=== PATIENT | male | born 1980 | race Caucasian/White ===

== ENCOUNTER 2017-03-17 16:19 | Emergency (ER) | payer OTHER ==
[~2017-03-17] VITALS: Wt 143.0 kg
[2017-03-17] MEDS ORDERED: ONDANSETRON 4 MG INJ IV STA (16:45)
[2017-03-17] MEDS ORDERED: morphine 4 MG/ML VIAL IV STA (16:45)
[2017-03-17] MEDS ORDERED: KETOROLAC 30 MG INJ IV STA (16:45)
[2017-03-17] MEDS ORDERED: SOD CHLORIDE 0.9% 1,000 ML IV STA (16:45)
--- NOTE | 2017-03-17 17:36 | RADRPT ---
PROCEDURE: US Scrotum. CLINICAL INDICATION: Right scrotal pain. TECHNIQUE: Multiple sonographic images of the scrotal region were obtained utilizing a linear arra y transducer with grayscale and color-flow and pulsed Doppler imaging. The images were reviewed on a high-resolution PACS workstation. COMPARISON: No prior studies are available for comparison. FINDINGS: The right testis measures 5.3 x 2.2 x 3.6 cm. The left testis measures 5.0 x 2.1 x 3.2 cm. There is no intratesticular mass. There is a benign right epididymal cyst measuring 0.5 cm and a benign left epididymal cyst measuring 0.5 cm. The epididymi are otherwise normal. There is normal flow to both testes demonstrated with color Doppler and pulsed Doppler sonography. There is no hydrocele. There is a varicocele in the right inguinal region with dilated veins measuring up to 2.0 mm. There is no left varicocele. The scrotal wall is unremarkable. IMPRESSION: 1. Benign bilateral epididymal cysts. 2. Varicocele in the right inguinal region measuring up to 2 mm. 3. Otherwise unremarkable scrotal ultrasound. RPTAT: QQ .Elie Chow MD, MD Date Time Electronically viewed and signed by .Elie Chow MD, MD on 03/17/2017 17:36 .R/
--- NOTE | 2017-03-17 19:16 | ERD ---
ER Documentation Chief Complaint Chief Complaint r. flank pain HPI 36-year-old male presents with severe right flank pain for 2 days. Began yesterday as testicular pain on the right side. The testicular pain has subsided and he now has severe flank pain he does not have any anterior abdominal pain. Is also had nausea and vomited on the way to the hospital. Has any history of kidney stones. Denies fever and chills. ROS All systems reviewed and are negative except as per history of present illness. Medications Home Meds Active Scripts Ondansetron (Ondansetron Odt) 4 Mg Tab.rapdis, 4 MG PO Q6H Y for NAUSEA AND/OR VOMITING, #14 TAB Prov:HERB VELOZ DO 03/17/17 Naproxen* (Naproxen*) 500 Mg Tablet, 500 MG PO BID, #22 TAB Prov:HERB VELOZ DO 03/17/17 Hydrocodone/Acetaminophen ([place] 5-325 Tablet) 1 Each Tablet, 1 EACH PO Q6, #20 TAB Prov:HERB VELOZ 03/17/17 PMhx/Soc Medical and Surgical Hx: pt denies Surgical Hx Hx Miscellaneous Medical Probl: Yes (cholesterol) Hx Alcohol Use: No Hx Substance Use: No Hx Tobacco Use: No Physical Exam Vitals Vital Signs Date Time Temp Pulse Resp B/P Pulse Ox O2 Delivery O2 Flow Rate FiO2 03/17/17 16:23 98.9 111 20 172/81 98 Physical Exam Const: [] Moderate distress Head: Atraumatic Eyes: Normal Conjunctiva ENT: Normal External Ears, Nose and Mouth. Neck: Full range of motion..~ No meningismus. Resp: Clear to auscultation bilaterally Cardio: Regular rate and rhythm, no murmurs Abd: Soft, non tender, non distended. Normal bowel sounds Skin: No petechiae or rashes Back: No midline or flank tenderness, no apparent musculoskeletal tenderness, Ext: No cyanosis, or edema Neur: Awake and alert Psych: Normal Mood and Affect Result Diagram: 03/17/17 1704 03/17/17 1704 Results 24 hrs Laboratory Tests Test 03/17/17 17:04 03/17/17 17:47 White Blood Count 9.610^3/ul Red Blood Count 5.3110^6/ul Hemoglobin 13.9g/dl Hematocrit 44.0% Mean Corpuscular Volume 82.9fl Mean Corpuscular Hemoglobin 26.2pg Mean Corpuscular Hemoglobin Concent 31.6g/dl Red Cell Distribution Width 12.6% Platelet Count 21281^3/UL Mean Platelet Volume 10.7fl Neutrophils % 63.0% Lymphocytes % 25.2% Monocytes % 8.6% Eosinophils % 2.7% Basophils % 0.3% Nucleated Red Blood Cells % 0.0/100WBC Neutrophils # 6.010^3/ul Lymphocytes # 2.410^3/ul Monocytes # 0.810^3/ul Eosinophils # 0.310^3/ul Basophils # 0.010^3/ul Nucleated Red Blood Cells # 0.010^3/ul Sodium Level 147mmol/L Potassium Level 4.0mmol/L Chloride Level 106mmol/L Carbon Dioxide Level 25mmol/L Anion Gap 20 Blood Urea Nitrogen 14mg/dl Creatinine 0.74mg/dl Glucose Level 107mg/dl Calcium Level 9.7mg/dl Total Bilirubin 0.2mg/dl Direct Bilirubin 0.00mg/dl Indirect Bilirubin 0.2mg/dl Aspartate Amino Transf (AST/SGOT) 25IU/L Alanine Aminotransferase (ALT/SGPT) 55IU/L Alkaline Phosphatase 94IU/L Total Protein 7.4g/dl Albumin 4.6g/dl Globulin 2.80g/dl Albumin/Globulin Ratio 1.64 Lipase 111U/L Urine Color YELLOW Urine Clarity SLIGHTLY CLOUDY Urine pH 5.0 Urine Specific Essie 1.027 Urine Ketones TRACEmg/dL Urine Nitrite NEGATIVEmg/dL Urine Bilirubin NEGATIVEmg/dL Urine Urobilinogen 1+mg/dL Urine Leukocyte Esterase 1+La/ul Urine Microscopic RBC 79/HPF Urine Microscopic WBC 24/HPF Urine Squamous Epithelial Cells FEW/HPF Urine Calcium Oxalate Crystals FEW/HPF Urine Bacteria FEW/HPF Urine Mucus MANY/HPF Urine Hemoglobin 3+mg/dL Urine Glucose NEGATIVEmg/dL Urine Total Protein 1+mg/dl Current Medications Medications (Trade) Dose Ordered Sig/Jenna Route PRN Reason Start Time Stop Time Status Last Admin Dose Admin Sodium Chloride (NS) 1,000 ml @ 1,000 mls/hr Q1H STAT IV 03/17/17 16:45 03/17/17 17:44 DC 03/17/17 17:12 Morphine Sulfate (morphine) 8 mg ONCE STAT IV 03/17/17 16:45 03/17/17 16:48 DC 03/17/17 17:11 Ondansetron HCl (Zofran Inj) 4 mg ONCE STAT IV 03/17/17 16:45 03/17/17 16:48 DC 03/17/17 17:11 Ketorolac Tromethamine (Toradol) 30 mg ONCE STAT IV 03/17/17 16:45 03/17/17 16:48 DC 03/17/17 17:11 Procedures/MDM Ureteral stone with colic. Patient's nausea and pain or care to the emergency room after liter of fluid, 4 mg of morphine, 30 mg of Toradol and 1 mg of Zofran. Patient also has varicocele on his right side which likely explains his symptoms he was virtually asymptomatic. No signs of infection. Going to discharge him with [place], naproxen, Zofran. Primary care follow-up in 2-3 days and return precautions CT abdomen pelvis interpretation: 4 mm right ureteral stone with mild hydronephrosis, no kidney stones, no obstruction of bowel, no free air perforation, no fractures Scrotal ultrasound interpret patient: Right hydrocele and inguinal region, good blood flow to both testicles. Departure Diagnosis: Primary Impression: Ureteral calculus, right Additional Impressions: Colic, ureteral Vomiting Condition: Stable HERB VELOZ DO Mar 17, 2017 19:16
--- NOTE | 2017-03-17 19:44 | RADRPT ---
PROCEDURE: CT KUB (renal stone survey). CLINICAL INDICATION: Severe right flank pain TECHNIQUE: CT KUB (Renal Stone Survey) without contrast was performed on a multidetector high-reso lution CT scanner. No IV contrast was administered. Coronal and sagittal reformatted images were o btained from the axial source images. Images were reviewed on a high-resolution PACS workstation. Th e total exam CTDI equals 23.6 mGy and the total exam DLP equals 1467.66 mGy-cm. One or more of the following dose reduction techniques were used: - Automated exposure control. - Adjustment of the mA and/or kV according to patient size. - Use of iterative reconstruction technique. COMPARISON: No prior studies are available for comparison. FINDINGS: CT renal stone survey: The kidneys are symmetric in size, position, and morphology. No renal calculus is identified. There is mild right hydronephrosis, mild right proximal hydroureter, and mild right perirenal and proxima l periureteral fat stranding/edema associated with a distal right ureteral calculus measuring 4 mm a t the ureteral vesicle junction (series 3, image 172; series 602, image 72). No left ureteral calcul us is seen. The unenhanced, under distended urinary bladder is otherwise grossly unremarkable. CT abdomen/pelvis: Respiratory motion artifact limits evaluation of the partially imaged lower lungs. A small pneumatoc nishi is partially imaged in the right lower lobe. No pleural effusion or suspicious pulmonary nodule or mass is identified at the lung bases. The partially imaged heart appears normal in size. There is no evidence of pericardial effusion or thickening at the levels scanned. The liver dome is excluded from the images, limiting evaluation. The liver appears normal in size an d contour, where visualized. There is evidence of mild diffuse hepatic steatosis. There is no eviden ce of discrete solid hepatic mass or intrahepatic biliary ductal dilatation. The gallbladder is unre markable. There is no extrahepatic biliary ductal dilatation. The spleen is normal in size and atten uation. Small splenule is noted. The pancreas is mildly fatty replaced, but otherwise unremarkable. The bilateral adrenal glands are normal and symmetric in size, morphology, and attenuation. The visualized lower thoracic and abdominal aorta is normal in caliber. No lymphadenopathy is identi fied in the abdomen, pelvis, or retroperitoneum. The stomach is partially collapsed, but grossly unr emarkable. The small bowel, as visualized, is unremarkable. There is no evidence of bowel obstructio n. The appendix is not definitely identified. No pericecal inflammatory changes are noted. There is mild sigmoid diverticulosis without evidence of acute diverticulitis. There is no free air or free f luid. The prostate gland seminal vesicles are grossly unremarkable. The surrounding osseous structures are remarkable for degenerative spondylosis of the spine. No ost eolytic or osteoblastic lesion is detected. IMPRESSION: 1. Mild right hydronephrosis and proximal right hydroureter secondary to a 4 mm distal right uretera l calculus, located at the ureterovesicle junction. No nephrolithiasis or left ureteral calculus is identified. 2. Mild sigmoid diverticulosis without evidence of acute diverticulitis. RPTAT: [facility] Physician Jade Date Time Electronically viewed and signed by Jeanie Jung Physician on 03/17/2017 19:43 KAMI/
[2017-03-17] MEDS ORDERED: HYDR-906 PO (20:02)
[2017-03-17] MEDS ORDERED: NAPR-688 PO (20:02)
[2017-03-17] MEDS ORDERED: ONDA4TAB14 PO (20:02)
[2017-03-17 20:22] VITALS: BP 125/59; PULSE 72; RESP 20
== END 2017-03-17 20:23 | disposition home or self-care (01) ==
LOC: FTE 16:19
DX: N20.1 Calculus of ureter (principal)
CPT/HCPCS: 36415; 74176; 76870; 80053; 81001; 83690; 85025; 96374; 96375; 99285; J1885; J2270; J2405; J7030